=== PATIENT | male | born 1960 | race Caucasian/White ===

== ENCOUNTER 2016-10-20 19:39 | Emergency (ER) | payer BC ==
[~2016-10-20 19:39] MED LIST: ASPIRIN ADULT L81 M3 PO; CLINDAMYCIN HC300 MG PO; LAC PO; SIMVASTATIN10 M1 PO
[2016-10-20 22:20] VITALS: BP 140/82
== END 2016-10-20 22:20 | disposition home or self-care (01) ==
LOC: ED 19:39
DX: S60.453A Superficial foreign body of left middle finger, initial encounter (principal); S61.243A Puncture wound with foreign body of left middle finger without damage to nail, initial encounter; Z88.1 Allergy status to other antibiotic agents; X58.XXXA Exposure to other specified factors, initial encounter; Y93.89 Activity, other specified; Y99.8 Other external cause status; Y92.89 Other specified places as the place of occurrence of the external cause
CPT/HCPCS: 90715; J1885; J2001; Q0092

== ENCOUNTER 2018-11-03 19:52 | Emergency (ER) | payer BC ==
[~2018-11-03] VITALS: Ht 182.9 cm; Wt 120.7 kg
[2018-11-03 20:02] VITALS: Ht 182.9 cm; Wt 120.7 kg
[2018-11-03 21:22] LABS: BASOPHIL % 0.4 % (0-2); PLATELET COUNT 275 x10^3mcL (130-400); RED CELL DISTRIBUTION WIDTH 13.6 % (11.5-14.5)
[2018-11-03 21:33] LABS: CARBON DIOXIDE 22.9 mmol/L (21-32); CHLORIDE SERUM 101 mmol/L (98-107); CREATININE SERUM 0.9 mg/dL (0.7-1.3); GFR1 > 60 mL/min; GLUCOSE SERUM 114 mg/dL (74-106); POTASSIUM SERUM 4.1 mmol/L (3.5-5.1); SODIUM SERUM 136 mmol/L (136-145)
[2018-11-03 21:38] LABS: ALBUMIN 3.7 g/dL (3.4-5.0); ALKALINE PHOSPHATASE 73 U/L (46-116); ALT/SGPT 37 U/L (16-63); AST/SGOT 20 U/L (15-37); BILIRUBIN TOTAL 0.48 mg/dL (0.20-1.00); TOTAL PROTEIN, SERUM 7.5 g/dL (6.4-8.2)
[2018-11-03 23:45] VITALS: BP 123/73
== END 2018-11-03 23:45 | disposition home or self-care (01) ==
LOC: ED 19:52
PROVIDERS: Emergency Medicine
DX: J18.9 Pneumonia, unspecified organism (principal); L03.115 Cellulitis of right lower limb; F17.210 Nicotine dependence, cigarettes, uncomplicated; Z88.1 Allergy status to other antibiotic agents
CPT/HCPCS: 99406; J2270; J7030; Q0092